=== PATIENT | male | born 1980 | race Caucasian/White ===

== ENCOUNTER → 2017-01-30 | Outpatient (CLI) | payer OTHER ==
[2017-01-30 09:36] LABS: BASO % 0.2 %; BASO ABS # 0.01 K/uL (0-0.2); COMPLETE YES; EOS % 1.7 %; HEMATOCRIT 41.3 % (42-52); IG% 0.2 %; LYMPH % 30.8 %; LYMPH ABS # 1.85 K/uL (1.2-3.4); MEAN CELL VOLUME 90.6 fL (80-100); MEAN CORPUSCULAR HEMOGLOBIN 31.6 pg (25-34); MEAN CORPUSCULAR HGB CONC 34.9 g/dl (32-36); MONO % 9.3 %; NEUT % 57.8 %; PLATELET COUNT 165 K/uL (130-400); RED BLOOD COUNT 4.56 M/uL (4.7-6.1)
[2017-01-30 10:03] LABS: ALB/GLOB RATIO 1.3 (0.9-2); ALKALINE PHOSPHATASE 58 U/L (45-117); ALT/SGPT 41 U/L (12-78); AST/SGOT 22 U/L (15-37); BLOOD UREA NITROGEN 26 mg/dl (7-18); BUN/CREATININE RATIO 21.7 (10-20); CALCIUM 8.3 mg/dl (8.5-10.1); CARBON DIOXIDE 30 mmol/L (21-32); CHLORIDE 107 mmol/L (98-107); GLUCOSE 103 mg/dl (70-99); HDL CHOLESTEROL 51 mg/dl; SODIUM 141 mmol/L (136-145)
[2017-01-30 10:05] LABS: URINE APPEARANCE CLEAR (CLEAR); URINE BILIRUBIN NEG (NEG); URINE COLOR YELLOW; URINE NITRITE NEG (NEG); URINE SPECIFIC GRAVITY 1.028 (1.000-1.030); UROBILINOGEN NEG (NEG)
[2017-01-30 10:15] LABS: CHOLESTEROL 184 mg/dl (0-200); CHOLESTEROL/HDL RATIO 3.6; LDL CHOLESTEROL CALCULATED 115 mg/dl; TRIGLYCERIDES 92 mg/dl (0-150); VERY LOW DENSITY LIPOPROT CALC 18 mg/dl
[2017-01-30 10:24] LABS: MANUAL MICROSCOPIC REQUIRED? NO; REVIEW REQ? NO
== END | disposition home or self-care (01) ==
LOC: C.LAB1850 08:17
PROVIDERS: ATTEND Internal Medicine Pulmonary Disease
DX: G47.419 Narcolepsy without cataplexy (principal)